=== PATIENT | female | born 1950 | race Caucasian/White ===

== ENCOUNTER → 2017-12-16 14:30 | Outpatient (CLI) | payer MEDICARE, SELFPAY ==
[2017-12-22 11:49] LABS: HPV Reflexed? NOT INDICATED
== END ==
PROVIDERS: Family Provider Family Medicine; PCP Family Medicine; Visit Provider Obstetrics & Gynecology
DX: Z12.4 Encounter for screening for malignant neoplasm of cervix (principal)
CPT/HCPCS: 88175; G0145

== ENCOUNTER → 2018-03-31 13:37 | Outpatient (CLI) | payer MEDICARE, OTHER, SELFPAY ==
--- NOTE | 2018-03-31 13:40 | BI_ITS ---
MAMMOGRAPHY - BILATERAL SCREENING REASON FOR EXAM: Female, 67 years old. Routine annual screening examination. PERTINENT HISTORY: Non-contributory. TECHNIQUE: Digital bilateral breast rachael (3D mammographic acquisition) in the CC and MLO projections. 2-D mediolateral oblique (MLO) and craniocaudad (CC) views of both breasts were obtained. CAD: Full Field Digital Mammography with Computer Added Detection was performed. COMPARISON: Comparison is made with prior examination dated March 23, 2017. FINDINGS: Breast Composition: There are scattered areas of fibroglandular density. There are no dominant masses or suspicious calcifications. No other significant abnormalities are identified. There has been no significant change since the prior study. BI/SCREENING MAMM (CAD), BILAT IMPRESSION: Stable bilateral screening mammogram. Yearly follow-up mammogram recommended. (A) ASSESSMENT CATEGORY: BIRADS Category 1: Negative. A letter regarding these results will be sent to the patient by the facility within 30 days. Approximately 10% of breast cancers are not detected by mammography. A normal mammogram should not delay biopsy of a clinically suspicious abnormality. [id number] Electronically Signed: Sunil Hinojosa MD at 15:02 EDT Tel [phone], Service support ,
== END ==
PROVIDERS: Family Provider Family Medicine; PCP Family Medicine; Visit Provider Obstetrics & Gynecology
DX: Z12.31 Encounter for screening mammogram for malignant neoplasm of breast (principal)
CPT/HCPCS: 77063; 77067

== ENCOUNTER 2018-04-26 15:00 | Outpatient (RCR) | payer MEDICARE, OTHER, SELFPAY ==
--- NOTE | 2018-02-16 13:17 | HP.PTEVAL_ITS ---
Patient's Visit Information LISSA HOWARD is a 67 year old F referred to Physical Therapy by SHIN AMADOR with a diagnosis of back pain/thoracic pain/ c-spine pain. Date of Evaluation: 02/16/18 Physical Therapist: Flaquita Lay - Visit Plan Frequency: 2x /Week Duration: 6 Weeks Plan: 2X/ week for 4- 6 weeks for AT for core stability, hip strengtheing, L knee AROM, gait training with HEP and modalities as needed. Pt will be seen by Dr Schneider on March 01 to be evaluated for L knee pain. - Subjective Subjective: Pt reports that her L knee has been giving her problems for about 3 month....last 2 weeks it has been burning and she has been limping. Sitting killed her....laying down and standing is ok. X-rays of knee show no arthritis and no broken bones. She has an appt with Dr Schneider on March 01 and has been at home not moving around...she has been taking advil around the clock. She [facility] a PT [facility] and he did isaak exercises and said compressed disc in her back. It was a lot better after did those exercises but onece put weight on it it hurts. Pt went to the Chiropractor yesterday and he did not touch the knee yesterday. He did adjust her back yesterday. SHe gets medial knee burning.. She had more back pain with doing the isaak press ups and less knee pain until she stood up. Pt has gotten an off the shelf L knee brace and abdominal brace to help her do things including driving. - Pain Back pain Pain Intensity (Out of 10): 0 L knee pain Pain Intensity (Out of 10): 1 Pain Intensity Range: 8 - Objective Gait: walks with decrease stance time on the L LE. B PAtellar DTR's. L knee AROM: -3 degrees to 129 degrees L knee flexion. R knee AROM: -1 degree to 130 dergrees R knee flexion. LE MMT: hip flex R 4/5 and L 4-/5, R knee flex 4/ 5 and L 4-/5, R knee ext 4/5 and L knee ext 4-/5, B hip abd 4/5. Pt is able to toe walk with no pain or weakness. she is able to heel walk but has increase pain on the L knee. 3/4 normal ROM bridge. Trunk AROM: ext 50%, flexion. Prone lying: no pain. Prone on Elbow: no pain. Press up X 10.......no pain in back...just felt tightbness in her spine....2X 10 no pain except a little back tightness. As soon as she stood up she had increase knee pain (medial side ). Stairs: up and down stairs recip with 2 handrails with definite more of a struggle ascending the stairs and almost hard to bend the knee descending the stairs. Palpation: tender along the medial joint line on the L and above the medial joint line. - Goals Goal 1:: I HEP Goal Time Frame: 4-6 Weeks Goal 2:: Increase L knee AROM -1 degree to 130 degrees flexion Goal Time Frame: 4-6 Weeks Goal 3:: Increase L knee pain to 2/10 with walking and stairs Goal Time Frame: 4-6 Weeks - Rehabilitation Potential Rehabilitation Potential: Good - Anticipated Interventions Patient/Client Instruction: Educate patient on: Condition, Plan of Care For the Purpose of:: To decrease pain, To increase ROM, To improve nutrient delivery to tissue, To improve muscle performance and motor function, To improve ability to perform ADL's, To increase tolerance to activity/condition/ position, To improve health of tissue Therapeutic Exercise to Include: Strength training, Flexibilty training, Gait and locomotor training, In an aquatic setting, Passive ROM, Active ROM, Dynamic Lumbar Stabilization For the Purpose of:: To decrease pain, To decrease swelling/inflammation, To increase ROM, To improve nutrient delivery to tissue, To improve muscle performance and motor function, To increase tolerance to activity/condition/ position, To improve performance and independence with ADL's, To improve ability of physical actions for home/community/work/leisure, To improve health of tissue, To decrease soft tissue restriction Thank you for the opportunity to evaluate your patient. For Medicare and Medicare HMO plans, please review the plan of care and approve it. It will need to be FAXED BACK to us at [phone] for Medicare purposes. Please let me know if there are questions or concerns regarding this plan of care. Physician Signature: Date:
--- NOTE | 2018-03-18 10:24 | HP.PTREVAL_ITS ---
SHIN AMADOR, It has been my pleasure to treat LISSA HOWARD over the last 8 visits for back pain/thoracic pain/ c-spine pain. Please see the progress note below for an update on the physical therapy plan of care! Subjective: Pt is better as she had a cortizone shot on Wednesday...and is still in ICU. She feels that she is 75% better. standing and lying are much better. Sitting she is still in pain and she can bend her knee better. She feels that PT is helping and does not want to stop... She has torn cartilage on both sides of her knee.... Stairs: at home she is using a railing and she is going one step at a time. Objective/Function: -3 degrees from full extsion and 132 degrees L knee flexion Plan Plan: Continue PT 2 X / week for 4 additional weeks to see if can continue to decrease pain level and increase ability to walk and stairs etc. I Program when AT completed. Goals Goal 1:: I HEP Goal Time Frame: 4-6 Weeks Goal Progress: Goal Met Goal 2:: Increase L knee AROM -1 degree to 130 degrees flexion Goal Time Frame: 4-6 Weeks Goal Progress: Goal Met Goal 3:: Increase L knee pain to 1/10 with walking and stairs Goal Time Frame: 4-6 Weeks Goal 4:: Be able to go up and down stairs recip with 1 hand rail with 1/10. Goal Time Frame: 4-6 Weeks Goal 5:: Be able to sit for 30 mins without having to get up and relieve the pain Goal Time Frame: 4-6 Weeks Anticipated Interventions Patient/Client Instruction: Educate patient on: Condition, Plan of Care For the Purpose of:: To decrease pain, To increase ROM, To improve nutrient delivery to tissue, To improve muscle performance and motor function, To improve ability to perform ADL's, To increase tolerance to activity/condition/ position, To improve health of tissue Therapeutic Exercise to Include: Strength training, Flexibilty training, Gait and locomotor training, In an aquatic setting, Passive ROM, Active ROM, Dynamic Lumbar Stabilization For the Purpose of:: To decrease pain, To decrease swelling/inflammation, To increase ROM, To improve nutrient delivery to tissue, To improve muscle performance and motor function, To increase tolerance to activity/condition/ position, To improve performance and independence with ADL's, To improve ability of physical actions for home/community/work/leisure, To improve health of tissue, To decrease soft tissue restriction Please do not hesitate to contact me at [phone] by phone or Fax: if you have questions or concerns regarding this new plan of care! Sincerely, Flaquita Lay
--- NOTE | 2018-04-26 15:26 | HP.PTDCSUM ---
HP - PT D/C Summary It has been my pleasure to treat LISSA HOWARD under orders from SHIN AMADOR, for the diagnosis of back pain/thoracic pain/ c-spine pain for a total of 16 visit(s). Discharge Date: 04/26/18 Please see the following information for a summary of their discharge status. - Subjective Subjective: He occ gets twinges when she moves it wrong but overall much better. SHe is much better sitting but worse if she sits too long. Driving up to [employer] bothered it. She is trying not to lock her knees. Pt really liked the water. - Pain Back pain Pain Intensity (Out of 10): 0 L knee pain Pain Intensity (Out of 10): 1 RLE Pain Intensity (Out of 10): 0 - Overall Improvement % Improvement: 75 - Objective Objective/Function: Pt has met all of her goals and feels confident with her exercies but just a matter of her finding the motivation of doing it at home. - Goals Goal 1:: I HEP Goal Progress: Goal Met Goal 2:: Increase L knee AROM -1 degree to 130 degrees flexion Goal Progress: Goal Met Goal 3:: Increase L knee pain to 1/10 with walking and stairs Goal Progress: Goal Met Goal 4:: Be able to go up and down stairs recip with 1 hand rail with 1/10. Goal Progress: Goal Met Goal 5:: Be able to sit for 30 mins without having to get up and relieve the pain Goal Progress: Goal Met - Plan Plan: DC PT to I H&W program/ home program. - D/C Information Discharge Comments: DC PT to HEP or H& W program If there are questions or concerns regarding this patient's physical therapy, please feel free to call me at [phone]. Thank you for the referral of this patient. Sincerely, Flaquita Lay
== END 2018-04-26 19:00 | disposition home or self-care (01) ==
LOC: PT 15:00
DX: M99.01 Segmental and somatic dysfunction of cervical region (principal); M99.03 Segmental and somatic dysfunction of lumbar region; M99.02 Segmental and somatic dysfunction of thoracic region; M99.05 Segmental and somatic dysfunction of pelvic region
CPT/HCPCS: 97113; 97161; 97530

== ENCOUNTER → 2019-04-03 | Outpatient (CLI) | payer MEDICARE, OTHER, SELFPAY ==
[2019-01-05 17:00] VITALS: BMI 32.3
--- NOTE | 2019-04-03 10:28 | BI_ITS ---
MAMMOGRAPHY - BILATERAL SCREENING REASON FOR EXAM: Female, 68 years old. Routine annual screening examination. PERTINENT HISTORY: Non-contributory. TECHNIQUE: Digital bilateral breast miguelangel (3D mammographic acquisition) in the CC and MLO projections. 2-D mediolateral oblique (MLO) and craniocaudad (CC) views of both breasts were obtained. CAD: Full Field Digital Mammography with Computer Added Detection was performed. COMPARISON: Comparison is made with prior study dated March 31, 2018 and March 23, 2017. FINDINGS: Breast Composition: The breasts are heterogeneously dense, which may obscure small masses. There are no dominant masses or suspicious calcifications. Stable small benign-appearing bilateral axillary lymph nodes. No other significant abnormalities are identified. There has been no significant change since the prior study. BI/SCREEN MAMM (CAD) W/MIGUELANGEL BILAT IMPRESSION: Stable bilateral screening mammogram. Yearly follow-up mammogram recommended. (A) ASSESSMENT CATEGORY: BIRADS Category 2: Benign. A letter regarding these results will be sent to the patient by the facility within 30 days. Approximately 10% of breast cancers are not detected by mammography. A normal mammogram should not delay biopsy of a clinically suspicious abnormality. [id number] Electronically Signed: Sunil Hinojosa, at 12:32 EDT , Service support ,
== END | disposition home or self-care (01) ==
LOC: OPBI 10:24
PROVIDERS: Family Provider Family Medicine; PCP Family Medicine; Referring Provider Obstetrics & Gynecology; Visit Provider Obstetrics & Gynecology
DX: Z12.31 Encounter for screening mammogram for malignant neoplasm of breast (principal)
CPT/HCPCS: 77063; 77067

== ENCOUNTER → 2020-04-26 10:41 | Outpatient (CLI) | payer MEDICARE, OTHER, SELFPAY ==
[2020-02-26 15:46] VITALS: BMI 31.3
== END ==
PROVIDERS: PCP Family Medicine; Referring Provider Nurse Practitioner; Visit Provider Nurse Practitioner
DX: R50.9 Fever, unspecified (principal); R52 Pain, unspecified
CPT/HCPCS: 87635; 94799; U0003

== ENCOUNTER 2021-05-29 15:30 | Outpatient (RCR) | payer MEDICARE, OTHER, SELFPAY ==
[2021-01-13 16:06] VITALS: BMI 32.5
--- NOTE | 2021-03-19 16:21 | HP.PTEVAL_ITS ---
Patient's Visit Information LISSA HOWARD is a 70 year old F referred to Physical Therapy by Dr. Donavon Crow MD with a diagnosis of Hip Pain. Date of Evaluation: 03/19/21 Physical Therapist: Brigida Velasquez DPT - Visit Plan Frequency: 2x /Week Duration: 4 Weeks Plan: Aquatic- focus on LE and core strength/stabilization - Subjective Patient reports that her right hip has been bothering her for about a month. Insidious onset. Pain is located along the right glut- and radiates to the hip a little bit but not all the time. Worse in the evening. Describes the pain as sharp/shooting and the right leg gives out on her. No falls but she used a cane the other day. Worst: 7/10 Agg: turning the wrong way, getting up from the recliner. She sits a lot during the day different areas- does a lot of paperwork. She takes care of her a lot. Best: 0/10 Eases: change position and take the anti-inflam holistic medication with lots of tumeric. No radiating pain or N/T in the LE. Her feet have felt a little bit numb but does not feel that its from this. She has had back problems since she fell off the horse and has always gone to an osteopath for adjustments. Pelvis fracture with crush injury when she was 19 years old. Does not have a lot of back pains but she goes weekly to the chiropractor- activator and manual therapy. Sleep: side sleeper hard to get comfortable but does not wake her up. Went chiro for the las t 5 days- twisted pelvis- Dr. Ku and reports its holding better. She does feel that she has less pain but by night its painful. Had a CT Scan of the pelvis but no x-rays of her hip or lumbar spine. Does have them done yearly at the chiropractor. PMHx: pre-diabetic, hysterctomy, x2, bladder tie up, asthma. Meds: citalopram, inhaler every day - Objective Posture: FH, RS, increased kyphosis- can correct but does not maintain. Gait: antalgic- decreased stance on the right with mild trendelenberg- reports pain throughout. Stairs: asc/desc 8 recip uses single UE for propulsion ascending and has poor control with descent. HR/TR: able with UE A. SLS: weight shift but unable to SLS without pain and LOB. ROM: Lumbar: WFL, Hip: WFL no pain with IR/ER, Knee/Ankle: WFL. Strength: Core: poor, Hip: flexion/abd: 4/5, IR/ER: 4- /5, Extn: 4/5, Knee: 4+/5, Ankle: 5/5. Flex: HS: moderate, Gastroc: moderate. Palpation: tender along sacrum and into the gluts on the right. Special Test: Scour: positive, LLD: negative, Pelvic Alignment: WFL, CHICO: positive - Goals Goal 1:: Patient will be I with HEP and progression Goal Time Frame: 4-6 Weeks Goal 2:: Patient will ambulate >300 feet with a normalized gait pattern Goal Time Frame: 4-6 Weeks Goal 3:: Patient will maintain proper posture t/o tx session to demo increased core s/s Goal Time Frame: 4-6 Weeks Goal 4:: Patient will report no more than 4/10 pain Goal Time Frame: 4-6 Weeks - Rehabilitation Potential Physical Therapy Diagnosis: Patient presents with hypomobility- she has decreased ROM, LE and core strength/stabilization, flexibility and muscular endurance leading to poor posture and increased pain with ADL's. Rehabilitation Potential: Fair - Anticipated Interventions Patient/Client Instruction: Educate patient on: Benefits of Fitness Program Therapeutic Exercise to Include: Strength training, Endurance training, Balance training, Agility training, Body mechanics, Postural training, Flexibilty training, Gait and locomotor training, Neuromotor development, In an aquatic setting, Passive ROM, Active ROM, Dynamic Lumbar Stabilization, Scapular Strength/Stabilization For the Purpose of:: To improve muscle performance and motor function Thank you for the opportunity to evaluate your patient. For Medicare and Medicare HMO plans, please review the plan of care and approve it. It will need to be FAXED BACK to us at [phone] for Medicare purposes. For Medicare only, by signing this I certify the plan of care. Please let me know if there are questions or concerns regarding this plan of care. Physician Signature: Date:
--- NOTE | 2021-04-23 11:34 | HP.PTREVAL ---
Dr. Donavon Crow MD, It has been my pleasure to treat LISSA HOWARD over the last 6 visits for Hip Pain. Please see the progress note below for an update on the physical therapy plan of care! Subjective: Pt. reports overall doing much better. She reports having 1/10 pain currently, but for the most part her pain has decreased. Pt. had to miss a few appointments due to scheduling conflicts and was only able to do a few appointments in the pool. Pt. reports being 70% better overall. Objective/Function: ROM: Lumbar spine: flexion min loss mild increase NW, ext min loss NE, rotation min loss mild increase NW, SB min loss NE. R hip ROM: flecion 125deg, ext 8deg, abd 45deg, ER 60deg, IR 20deg. Pt. is a little tight into hip ER and hip flexor. 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 Pt. has no lateral shift noted. Pt. is able to improve with VC/TCing, but struggles to maintain. PALPATION: mild tenderness at SI joint on R side and lumbar erector spinae, but minimal. NEURO: normal throughout. MMT: Pt. has improved BLE strength to 4/5 throughout R hip, but core strength and motor control is still difficult for her. She is now able to walk community level distances with out increase in symptoms. She is still having 1/10 pain in her R hip at times, but is overall improved. Plan Plan: I would like her to continue in the pool with focus on postural control/motor control, core/lumbar erector spinae and hip strengthening. Progress to HEP. Balance/Gait/Functional tests - Balance/Special Test Scores Lower Extremity Functional Score: 24 Goals Goal 1:: Patient will be I with HEP and progression Goal Time Frame: 4-6 Weeks Goal Progress: Progressing Goal 2:: Patient will ambulate >300 feet with a normalized gait pattern Goal Time Frame: 4-6 Weeks Goal Progress: Goal Met Goal 3:: Patient will maintain proper posture t/o tx session to demo increased core s/s Goal Time Frame: 4-6 Weeks Goal Progress: Progressing Goal 4:: Patient will report no more than 4/10 pain Goal Time Frame: 4-6 Weeks Goal Progress: Goal Met Goal 5:: LTG: Pt. to have increased BLE and core strength increased to at least 4+/5 throughout. Goal Time Frame: 4-6 Weeks Goal Progress: Progressing Anticipated Interventions Patient/Client Instruction: Educate patient on: Benefits of Fitness Program Therapeutic Exercise to Include: Strength training, Endurance training, Balance training, Agility training, Body mechanics, Postural training, Flexibilty training, Gait and locomotor training, Neuromotor development, In an aquatic setting, Passive ROM, Active ROM, Dynamic Lumbar Stabilization, Scapular Strength/Stabilization For the Purpose of:: To improve muscle performance and motor function Please do not hesitate to contact me at [phone] by phone or if you have questions or concerns regarding this new plan of care! Sincerely, Jerald Avila DPT
--- NOTE | 2021-05-30 10:04 | HP.PTDCSUM ---
It has been my pleasure to treat LISSA HOWARD referred by Dr. Donavon Crow MD, with the diagnosis of Hip Pain for a total of 13 visit(s). Discharge Date: 05/29/21 Please see the following information for a summary of their discharge status. Subjective: Pt. reports no longer having any hip pain. Pt. reports having some occasional knee pain. Pt. reports being 98% better overall. hip pain Pain Intensity (Out of 10): 0 RLE Pain Intensity (Out of 10): 0 % Improvement: 98 Objective/Function: ROM: Pt. has close to full ROM of her B hips without increase in symptoms. MMT 5/5 throughout without increase in symptoms. PT. is ambulating unlimited distances without issues at this point in time. She is independent with a pool and land program and plans to do both. Pt. will be DC from PT at this point in time. Goal 1:: Patient will be I with HEP and progression Goal Progress: Goal Met Goal 2:: Patient will ambulate >300 feet with a normalized gait pattern Goal Progress: Goal Met Goal 3:: Patient will maintain proper posture t/o tx session to demo increased core s/s Goal Progress: Goal Met Goal 4:: Patient will report no more than 4/10 pain Goal Progress: Goal Met Goal 5:: LTG: Pt. to have increased BLE and core strength increased to at least 4+/5 throughout. Goal Progress: Goal Met Plan: DC to HEP at this point in time. Discharge Comments: PT. to be DC from PT at this point in time. She was treated for her hip pain in aquatic setting and is no longer having any symptoms. Pt. has met all goals icluding ROM and strength. She will be DC to HEP at this point in time. If there are questions or concerns regarding this patient's physical therapy, please feel free to call me at [phone]. Thank you for the referral of this patient. Sincerely, Jerald Avila, DPT Balance/Gait/Functional tests - Balance/Special Test Scores Lower Extremity Functional Score: 24
== END 2021-05-29 19:00 | disposition home or self-care (01) ==
LOC: PT 15:30
PROVIDERS: PCP Nurse Practitioner; Referring Provider Chiropractor; Visit Provider Chiropractor
DX: M25.551 Pain in right hip (principal); M54.5 Low back pain
CPT/HCPCS: 97113; 97162; 97164

== ENCOUNTER → 2023-06-09 | Outpatient (CLI) | payer MEDICARE, OTHER, SELFPAY ==
[2023-06-09 21:20] LABS: Absolute Lymphocyte Count 1.06 X10^3/uL (0.83-4.51); Absolute Neutrophil Count 2.3 X10^3/uL (2.0-7.7); Basophil# 0.05 X10^3/uL; Basophil% 1.3 % (0-1); Eosinophil# 0.07 X10^3/uL; Eosinophils% 1.8 % (0-5); Hemoglobin 13.2 g/dL (12.0-15.0); Lymphocyte # 1.06 X10^3/ul (0.83-4.51); Lymphocyte % 27.3 % (19-41); Mean Corpuscular Hgb 30.5 pg (27.0-32.0); Mean Corpuscular Volume 92.4 fL (81-99); Mean Platelet Vol. 9.5 fl (6.2-12.0); Monocyte# 0.42 X10^3/uL; Monocyte% 10.8 % (0-10); NRBC Flagged by Analyzer 0 % (0-5); Neutrophil # 2.28 X10^3/uL (2.7-7.7); Neutrophil % 58.8 % (47-70); Platelet Count 198 K/mm3 (150-450); RBC Distribution Width CV 12.3 % (11.6-14.6); RBC Distribution Width SD 41.9 fl (35.1-43.9); Red Blood Count 4.33 M/mm3 (4.2-5.4); White Blood Count 3.9 K/mm3 (4.4-11.0)
[2023-06-09 21:48] LABS: ALB/GLOB Ratio 1.3 RATIO (0.9-2.4); AST(SGOT) 18 U/L (15-37); Alanine Aminotransfer ALT/SGPT 30 U/L (13-56); Albumin, Serum 4.3 g/dL (3.2-5.0); Alkaline Phosphatase 81 U/L (45-117); Anion Gap 3 (5-15); BUN 10 mg/dL (7-18); BUN/Creat Ratio 15.1 RATIO (10-20); Calcium,Total 9.1 mg/dL (8.5-10.1); Chloride 108 mmol/L (98-107); Cholesterol 253 mg/dL (200); Creatinine, Serum 0.66 mg/dL (0.55-1.02); EST Glomerular Filtration Rate 93 mL/min (>60); Est Glom Filt Rate - Afr Amer 113 mL/min (>60); Globulin 3.2 g/dL (2.2-4.2); Glucose 100 mg/dL (74-106); High Density Lipoprotein 59 mg/dL; Potassium 3.9 mmol/L (3.5-5.1); Protein, Total 7.5 g/dL (6.4-8.2); Sodium Level 140 mmol/L (136-145); Triglycerides 258 mg/dL; Very Low Density Lipoprotein 52 mg/dL (5-40)
== END | disposition home or self-care (01) ==
PROVIDERS: PCP Nurse Practitioner; Visit Provider Nurse Practitioner
DX: J45.909 Unspecified asthma, uncomplicated (principal); E78.00 Pure hypercholesterolemia, unspecified
CPT/HCPCS: 80053; 80061; 85025

== ENCOUNTER → 2023-12-07 | Outpatient (CLI) | payer MEDICARE, OTHER, SELFPAY ==
[2023-12-07 22:19] LABS: Absolute Lymphocyte Count 0.98 X10^3/uL (0.83-4.51); Absolute Neutrophil Count 1.9 X10^3/uL (2.0-7.7); Basophil# 0.04 X10^3/uL; Basophil% 1.2 % (0-1); Eosinophil# 0.07 X10^3/uL; Eosinophils% 2.1 % (0-5); Hematocrit 39.1 % (37-47); Hemoglobin 12.6 g/dL (12.0-15.0); Lymphocyte # 0.98 X10^3/ul (0.83-4.51); Lymphocyte % 29.1 % (19-41); Mean Corp Hgb Conc 32.2 g/dL (32-36); Mean Corpuscular Hgb 29.4 pg (27.0-32.0); Mean Corpuscular Volume 91.4 fL (81-99); Mean Platelet Vol. 9.6 fl (6.2-12.0); Monocyte# 0.41 X10^3/uL; Monocyte% 12.2 % (0-10); NRBC Flagged by Analyzer 0 % (0-5); Neutrophil # 1.86 X10^3/uL (2.7-7.7); Neutrophil % 55.1 % (47-70); Platelet Count 201 K/mm3 (150-450); RBC Distribution Width CV 12.6 % (11.6-14.6); RBC Distribution Width SD 41.6 fl (35.1-43.9); Red Blood Count 4.28 M/mm3 (4.2-5.4); White Blood Count 3.4 K/mm3 (4.4-11.0)
[2023-12-07 22:29] LABS: Vitamin B12 887 pg/mL (211-911)
[2023-12-07 22:48] LABS: ALB/GLOB Ratio 1.3 RATIO (0.9-2.4); AST(SGOT) 20 U/L (15-37); Alanine Aminotransfer ALT/SGPT 30 U/L (13-56); Alkaline Phosphatase 72 U/L (45-117); Anion Gap 4 (5-15); BUN 19 mg/dL (7-18); BUN/Creat Ratio 18.4 RATIO (10-20); Calcium,Total 9.1 mg/dL (8.5-10.1); Chloride 108 mmol/L (98-107); Creatinine, Serum 1.03 mg/dL (0.55-1.02); EST Glomerular Filtration Rate 56 mL/min (>60); Est Glom Filt Rate - Afr Amer 68 mL/min (>60); Globulin 3.1 g/dL (2.2-4.2); Glucose 86 mg/dL (74-106); Magnesium 2.5 mg/dL (1.6-2.6); Protein, Total 7.1 g/dL (6.4-8.2); Sodium Level 141 mmol/L (136-145); Thyroid Stim Hormone (TSH) 0.49 uIU/mL (0.358-3.74)
[2023-12-09 15:08] LABS: Treponema palladium Ab (FTA) Non Reactive (Non Reactive)
[2023-12-11 16:09] LABS: Vitamin D 1,25-Dihydroxy 53.7 pg/mL (24.8-81.5)
== END | disposition home or self-care (01) ==
PROVIDERS: PCP Nurse Practitioner; Referring Provider Nurse Practitioner; Visit Provider Nurse Practitioner
DX: R41.3 Other amnesia (principal); R53.83 Other fatigue; R52 Pain, unspecified; E78.00 Pure hypercholesterolemia, unspecified; J40 Bronchitis, not specified as acute or chronic
CPT/HCPCS: 80053; 82607; 82652; 83735; 84443; 85025; 86780

== ENCOUNTER → 2024-09-01 | Outpatient (CLI) | payer MEDICARE, OTHER, SELFPAY ==
[2024-09-01 09:47] LABS: Absolute Lymphocyte Count 0.64 X10^3/uL (0.83-4.51); Absolute Neutrophil Count 2.5 X10^3/uL (2.0-7.7); Basophil# 0.04 X10^3/uL; Basophil% 1.1 % (0-1); Eosinophil# 0.03 X10^3/uL; Eosinophils% 0.8 % (0-5); Hematocrit 36.4 % (37-47); Hemoglobin 11.8 g/dL (12.0-15.0); Lymphocyte # 0.64 X10^3/ul (0.83-4.51); Lymphocyte % 17.8 % (19-41); Mean Corp Hgb Conc 32.4 g/dL (32-36); Mean Corpuscular Hgb 29.1 pg (27.0-32.0); Mean Corpuscular Volume 89.9 fL (81-99); Mean Platelet Vol. 9.4 fl (6.2-12.0); Monocyte# 0.38 X10^3/uL; Monocyte% 10.6 % (0-10); NRBC Flagged by Analyzer 0 % (0-5); Neutrophil % 69.4 % (47-70); Platelet Count 216 K/mm3 (150-450); RBC Distribution Width CV 12.4 % (11.6-14.6); RBC Distribution Width SD 40.1 fl (35.1-43.9); Red Blood Count 4.05 M/mm3 (4.2-5.4); White Blood Count 3.6 K/mm3 (4.4-11.0)
--- NOTE | 2024-09-01 09:50 | BI_ITS ---
MAMMOGRAPHY - BILATERAL SCREENING REASON FOR EXAM: Female, 73 years old. Routine annual screening examination. PERTINENT HISTORY: Non-contributory. TECHNIQUE: Digital bilateral breast miguelangel (3D mammographic acquisition) in the CC and MLO projections. 2-D mediolateral oblique (MLO) and craniocaudad (CC) views of both breasts were obtained. CAD: Full Field Digital Mammography with Computer Added Detection was performed. COMPARISON: Comparison is made with prior outside examination dated August 23, 2023 and April 03, 2019. FINDINGS: Breast Composition: The breasts are heterogeneously dense, which may obscure small masses. There are no dominant masses or suspicious calcifications. No other significant abnormalities are identified. There has been no significant change since the prior study. BI/SCRN MAMM (CAD)W/MIGUELANGEL BILAT IMPRESSION: Stable bilateral screening mammogram. Yearly follow-up mammogram recommended. (A) ASSESSMENT CATEGORY: BIRADS Category 1: Negative. A letter regarding these results will be sent to the patient by the facility within 30 days. Approximately 10% of breast cancers are not detected by mammography. A normal mammogram should not delay biopsy of a clinically suspicious abnormality. [id number] Electronically Signed: Sunil Hinojosa MD at 11:23 EST ,
[2024-09-01 10:06] LABS: Vitamin D,25 Hydroxy 93.1 ng/mL
[2024-09-01 10:09] LABS: ALB/GLOB Ratio 1.2 RATIO (0.9-2.4); AST(SGOT) 32 U/L (15-37); Alanine Aminotransfer ALT/SGPT 51 U/L (13-56); Albumin, Serum 3.7 g/dL (3.2-5.0); Alkaline Phosphatase 74 U/L (45-117); Anion Gap 3 (5-15); BUN 14 mg/dL (7-18); BUN/Creat Ratio 20.4 RATIO (10-20); Calcium,Total 9.3 mg/dL (8.5-10.1); Chloride 108 mmol/L (98-107); Cholesterol 112 mg/dL (200); Creatinine, Serum 0.69 mg/dL (0.55-1.02); EST Glomerular Filtration Rate 89 mL/min (>60); Est Glom Filt Rate - Afr Amer 108 mL/min (>60); Glucose 99 mg/dL (74-106); High Density Lipoprotein 62 mg/dL; Potassium 3.9 mmol/L (3.5-5.1); Protein, Total 6.7 g/dL (6.4-8.2); Sodium Level 140 mmol/L (136-145); Triglycerides 44 mg/dL; Very Low Density Lipoprotein 9 mg/dL (5-40)
== END | disposition home or self-care (01) ==
LOC: OPBI 09:08
PROVIDERS: PCP Nurse Practitioner Family; Referring Provider Nurse Practitioner Family; Visit Provider Nurse Practitioner Family
DX: Z12.31 Encounter for screening mammogram for malignant neoplasm of breast (principal); E78.5 Hyperlipidemia, unspecified; E55.9 Vitamin D deficiency, unspecified; I10 Essential (primary) hypertension
CPT/HCPCS: 36415; 77063; 77067; 80053; 80061; 82306; 85025

== ENCOUNTER → 2025-06-28 | Outpatient (CLI) | payer MEDICARE, OTHER, SELFPAY ==
--- NOTE | 2025-06-28 14:05 | ECHOD_ITS ---
Reason For Study Reason For Study: MURMUR Procedure This was a 2D Doppler, Color Flow transthoracic echocardiogram. Exam performed in department. Left Ventricle Normal size and thickness. The left ventricular ejection fraction is 65 %. Normal diastololic function. Right Ventricle Normal right ventricle. Atria The left and right atria are normal. Mitral Valve Mild (1+) mitral valve insufficiency. Tricuspid Valve Mild-Moderate (1-2+) tricuspid valve insufficiency. Right ventricular systolic pressure estimated to be 49 mmHg. Aortic Valve Trisinus/trileaflet aortic valve. Mild-Moderate (1-2+) aortic valve insufficiency. Pulmonic Valve The pulmonic valve is not well visualized. Great Vessels Normal sized aortic root. Pericardium/Pleural No pericardial effusion. MMode/2D Measurements & Calculations LVIDd: 4.8 cm IVSd: 0.94 cm Ao root diam: 2.7 cm LVIDs: 3.0 cm LVPWd: 0.90 cm RVDd: 3.3 cm FS: 37.4 % LAV(MOD-bp): 57.8 ml LVAd ap4: 28.3 cm2 SV(MOD-sp4): 52.8 ml LAV(MOD-bp) Indexed: 32.2 ml/m2 LVLd ap4: 8.5 cm SI(MOD-sp4): 29.4 ml/m2 LAV(MOD-sp2): 58.0 ml EDV(MOD-sp4): 77.5 ml LAV(MOD-sp4): 54.0 ml EDV(sp4-el): 79.4 ml LVAs ap4: 14.3 cm2 LVLs ap4: 6.9 cm ESV(MOD-sp4): 24.7 ml ESV(sp4-el): 25.5 ml EF(MOD-sp4): 68.1 % EF(sp4-el): 67.9 % SV(sp4-el): 53.9 ml LA A4 area: 20.3 cm2 LA dimension(2D): 3.0 cm RA A4 area: 18.5 cm2 TAPSE: 2.6 cm Time Measurements MV dec time: 0.26 sec Doppler Measurements & Calculations MV E max billy: 113.1 cm/sec Lat Peak E' Billy: 14.1 cm/sec Med Peak E' Billy: 12.9 cm/sec MV A max billy: 76.3 cm/sec E/E' lat: 8.0 E/E' med: 8.8 MV E/A: 1.5 Ao V2 max: 200.6 cm/sec AI max billy: 409.5 cm/sec LV V1 max: 150.3 cm/sec Ao max P.1 mmHg AI max P.1 mmHg LV V1 max P.0 mmHg AI dec slope: 272.8 cm/sec2 AI P1/2t: 439.7 msec PA V2 max: 91.6 cm/sec TR max billy: 291.6 cm/sec TR max P.1 mmHg ECHO/Echo Complete Interpretation Summary The left ventricular ejection fraction is 65 %. Mild (1+) mitral valve insufficiency. Mild-Moderate (1-2+) tricuspid valve insufficiency. Right ventricular systolic pressure estimated to be 49 mmHg. Mild-Moderate (1-2+) aortic valve insufficiency. Ordering Physician: Cecilia Kee Referring Physician: Cecilia Kee Performed By: Huong Mccray RDCS
== END | disposition home or self-care (01) ==
LOC: CVS 14:03
PROVIDERS: PCP Nurse Practitioner Family; Referring Provider Nurse Practitioner Family; Visit Provider Nurse Practitioner Family
DX: R01.1 Cardiac murmur, unspecified (principal)
CPT/HCPCS: 93306

== ENCOUNTER → 2025-07-23 | Outpatient (CLI) | payer MEDICARE, OTHER, SELFPAY ==
[2025-07-23 10:48] LABS: Hematocrit 38.1 % (37-47); Hemoglobin 12.3 g/dL (12.0-15.0); Immature Granulocytes Count 0.010 X10^3/uL (0.0-0.0); Mean Corp Hgb Conc 32.3 g/dL (32-36); Mean Corpuscular Volume 92.3 fL (81-99); Mean Platelet Vol. 9.5 fl (6.2-12.0); NRBC Flagged by Analyzer 0 % (0-5); Platelet Count 171 K/mm3 (150-450); RBC Distribution Width CV 12.6 % (11.6-14.6); RBC Distribution Width SD 42.3 fl (35.1-43.9); Red Blood Count 4.13 M/mm3 (4.2-5.4); White Blood Count 3.4 K/mm3 (4.4-11.0)
[2025-07-23 11:40] LABS: AST(SGOT) 20 U/L (<=31); Alanine Aminotransfer ALT/SGPT 19 U/L (<=34); Albumin, Serum 4.3 g/dL (3.4-4.8); Alkaline Phosphatase 62 U/L (35-104); Anion Gap 8 (5-15); BUN 17 mg/dL (4-19); BUN/Creat Ratio 24.0 RATIO (10-20); Calcium,Total 9.3 mg/dL (7.6-11.0); Carbon Dioxide 27.8 mmol/L (21.0-32.0); Chloride 104 mmol/L (98-108); Cholesterol 204 mg/dL (<=200); Globulin 2.2 g/dL (2.2-4.2); Glucose 98 mg/dL (70-99); Low Density Lipoprotein Calc. 120 mg/dL; Potassium 4.2 mmol/L (3.3-5.1); Triglycerides 36 mg/dL; Very Low Density Lipoprotein 7 mg/dL (5-40); Vitamin D,25 Hydroxy 40.7 ng/mL (30-100); cholesterol:hdl ratio screen 2.65
== END | disposition home or self-care (01) ==
LOC: LAB 09:40
PROVIDERS: PCP Nurse Practitioner Family; Referring Provider Nurse Practitioner Family; Visit Provider Nurse Practitioner Family
DX: Z00.01 Encounter for general adult medical examination with abnormal findings (principal); E55.9 Vitamin D deficiency, unspecified
CPT/HCPCS: 36415; 80053; 80061; 82306; 85025

== ENCOUNTER → 2025-09-13 | Outpatient (CLI) | payer MEDICARE, OTHER, SELFPAY ==
--- NOTE | 2025-09-13 13:47 | BI_ITS ---
EXAM: SCRN MAMM (CAD)W/MIGUELANGEL BILAT DATE: 09/13/2025 CLINICAL HISTORY: F, Age 74 y/o , SCREENING No family history. TECHNIQUE: Procedure Code: [id number] Modality: MG Procedure: SCRN MAMM (CAD)W/MIGUELANGEL BILAT COMPARISON: Prior exam(s) dated September 01, 2024.. FINDINGS: TISSUE DENSITY: The breasts are heterogeneously dense, which may obscure small masses. Bilateral Breast Mammographic Findings: No significant masses, calcifications or other abnormalities are identified. No suspicious masses, areas of developing architectural distortion, or suspicious calcifications. There has been no significant interval change. BI/SCRN MAMM (CAD)W/MIGUELANGEL BILAT IMPRESSION: Stable bilateral screening mammogram. OVERALL FINAL ASSESSMENT BI-RADS 1: NEGATIVE. RECOMMENDATION: Routine annual follow-up in 1 Year Additional Recommendation none A letter with findings and recommendations will be mailed to the patient. Reading Location: [facility]
== END | disposition home or self-care (01) ==
PROVIDERS: PCP Nurse Practitioner Family; Referring Provider Nurse Practitioner Family; Visit Provider Nurse Practitioner Family
DX: Z12.31 Encounter for screening mammogram for malignant neoplasm of breast (principal)
CPT/HCPCS: 77063; 77067